=== PATIENT | male | born 1960 | race African-American/Black ===

== ENCOUNTER 2017-07-14 19:07 | Inpatient (IN) ==
[2017-07-14] MEDS ORDERED: NITROGLYCERIN SL 0.4 MG TABLET SL PRN (21:21)
[2017-07-14] MEDS ORDERED: ONDANSETRON 4 MG/2 ML VIAL IV STA (21:21)
[2017-07-14] MEDS ORDERED: MORPHINE 2 MG/1 ML SYRINGE IV STA (21:21)
[2017-07-15] MEDS ORDERED: ONDANSETRON 4 MG/2 ML VIAL IV PRN (00:48)
[2017-07-15] MEDS ORDERED: GLUCAGON 1 MG VIAL IM PRN (00:48)
[2017-07-15] MEDS ORDERED: DEXTROSE 50% 25 GM/50 ML VIAL IV PRN (00:48)
[2017-07-15] MEDS ORDERED: HEPARIN DRIP 25,000 UNITS/500 ML PREMIX IV SCH (01:00)
[2017-07-15] MEDS: METOPROLOL TARTRATE 25 MG TABLET PO SCH ×2 (02:33→08:18)
[2017-07-15 03:02] LABS: Basophils % 0.6 % (0.0-0.8); Eosinophils # 0.3 10*3/uL (0.0-0.87); Eosinophils % 3.8 % (0.00-10.9); Hematocrit 44.1 VOL% (42.0-52.0); Hemoglobin 15.2 GM/DL (14.0-18.0); Immature Granulocytes % 0.7 %; Immature Granulocytes Absolute 0.05 #; Lymphocytes # 2.3 10*3/uL (1.4-4.0); Lymphocytes % 32.4 % (21.2-54.2); Mean Corpuscular HGB Conc 34.5 GM/DL (32-36); Mean Corpuscular Hemoglobin 33 PG (27-34); Mean Corpuscular Volume 94.4 FL (87-102); Mean Platelet Volume 10.4 FL (9.6-12.0); Monocytes # 0.7 10*3/uL (0.11-0.8); Monocytes % 9.2 % (1.7-12.7); Neutrophils # 3.8 10*3/uL (1.4-7.4); Neutrophils % 53.3 % (38.7-73.9); Platelet Count 158 T/CUMM (130-400); Red Blood Count 4.67 MC/CUMM (3.8-5.5); Red Cell Distribution Width 12.2 % (9.3-17.3); White Blood Count 7.1 T/CUMM (4-12)
[2017-07-15 03:30] LABS: Calcium 8.5 MG/DL (8.5-10.1); Osmolality,Calculated 280.4 MOS/KG (273-304); Potassium 3.6 MMOL/L (3.5-5.1)
[2017-07-15 03:33] LABS: PT Patient Result 10.4 SECS; Partial Thromboplastin Time 25.5 SECS (0-40)
[2017-07-15] MEDS: ACETAMINOPHEN 325 MG TABLET PO PRN ×2 (05:32→09:42)
[2017-07-15] MEDS: ASPIRIN 325 MG TABLET PO SCH (08:17)
[2017-07-15] MEDS: PANTOPRAZOLE 40 MG TABLET PO SCH (08:18)
[2017-07-15] MEDS: INSULIN LISPRO 100 UNIT/ML SUBCUT SCH ×4 (09:40→20:59)
[2017-07-15] MEDS ORDERED: LABETALOL 20 MG/4 ML SYRINGE IV ONE (13:54)
[2017-07-15] MEDS: FUROSEMIDE 40 MG/4 ML VIAL IV SCH (16:45)
[2017-07-15] MEDS: POTASSIUM CHLORIDE 20 MEQ TABLET PO SCH (16:45)
[2017-07-15] MEDS: CARVEDILOL 25 MG TABLET PO SCH (20:59)
[2017-07-15] MEDS: APIXABAN 5 MG TABLET PO SCH (20:59)
[2017-07-15] MEDS: LISINOPRIL 20 MG TABLET PO SCH (20:59)
[2017-07-15] MEDS ORDERED: LISINOPRIL 10 MG TABLET PO SCH (21:00)
[2017-07-15] MEDS ORDERED: CARVEDILOL 3.125 MG TABLET PO SCH (21:00)
[2017-07-16 06:18] LABS: Calcium 8.5 MG/DL (8.5-10.1); Osmolality,Calculated 284.3 MOS/KG (273-304); Potassium 3.6 MMOL/L (3.5-5.1)
[2017-07-16] MEDS: FUROSEMIDE 40 MG/4 ML VIAL IV SCH ×2 (08:08→15:12)
[2017-07-16] MEDS: POTASSIUM CHLORIDE 20 MEQ TABLET PO SCH (08:09)
[2017-07-16] MEDS: PANTOPRAZOLE 40 MG TABLET PO SCH (08:09)
[2017-07-16] MEDS: ASPIRIN 325 MG TABLET PO SCH (08:09)
[2017-07-16] MEDS: APIXABAN 5 MG TABLET PO SCH ×2 (08:10→21:07)
[2017-07-16] MEDS: CARVEDILOL 25 MG TABLET PO SCH ×2 (08:10→21:07)
[2017-07-16] MEDS: LISINOPRIL 20 MG TABLET PO SCH ×2 (08:10→21:07)
[2017-07-16] MEDS: INSULIN LISPRO 100 UNIT/ML SUBCUT SCH ×4 (12:30→21:07)
[2017-07-17 05:52] LABS: Osmolality,Calculated 280.4 MOS/KG (273-304); Potassium 3.8 MMOL/L (3.5-5.1)
[2017-07-17] MEDS ORDERED: REGADENOSON 0.4 MG/5 ML SYRINGE IV ONE (09:21)
[2017-07-17] MEDS: LISINOPRIL 20 MG TABLET PO SCH (10:02)
[2017-07-17] MEDS: ASPIRIN 325 MG TABLET PO SCH (10:02)
[2017-07-17] MEDS: APIXABAN 5 MG TABLET PO SCH (10:03)
[2017-07-17] MEDS: CARVEDILOL 25 MG TABLET PO SCH (10:03)
[2017-07-17] MEDS: FUROSEMIDE 40 MG/4 ML VIAL IV SCH (10:03)
[2017-07-17] MEDS: PANTOPRAZOLE 40 MG TABLET PO SCH (10:03)
[2017-07-17] MEDS: POTASSIUM CHLORIDE 20 MEQ TABLET PO SCH (10:03)
[2017-07-17] MEDS: INSULIN LISPRO 100 UNIT/ML SUBCUT SCH ×2 (10:41→12:37)
[2017-07-17 10:47] VITALS: BP 158/87
[2017-07-17] MEDS ORDERED: FUROSEMIDE 40 MG TABLET PO SCH (16:00)
== END 2017-07-17 12:33 | disposition home or self-care (01) | DRG 292 ==
LOC: N.TELES 20:34 → SUATTDRO 20:34
PROVIDERS: ADMIT Family Medicine